=== PATIENT | male | born 1980 | race Caucasian/White ===

== ENCOUNTER 2017-07-22 13:36 | Emergency (ER) | payer BC ==
[2017-07-22] MEDS ORDERED: LORazepam 2 MG/ML MDV IVPUSH ONE (14:31)
[2017-07-22] MEDS ORDERED: Sodium Chloride 0.9% 1,000 ML IV ONE (14:32)
[2017-07-22] MEDS ORDERED: cloNIDine 0.1 MG Tab PO ONE (14:32)
--- NOTE | 2017-07-22 14:33 | EDM.PDOC ---
ED HPI GENERAL MEDICAL PROBLEM - General Chief Complaint: Drug or Alcohol Abuse Stated Complaint: UNKNOWN Time Seen by Provider: 07/22/17 14:32 Source of Information: Reports: Patient - History of Present Illness INITIAL COMMENTS - FREE TEXT/NARRATIVE: HISTORY AND PHYSICAL: History of present illness: [Patient presents who is somewhat anxious in appearance, he relates this being related to alcohol withdrawal although he is been drinking heavily over the last 3 days generally drinking 616 ounce beers daily along with a couple of shots over the last 3 days he is drinking up to a case of beer daily along with several shots of hard liquor. His last drink was at 10 AM he has no tremor he has voiced that he is drinking too much over the last couple of days but does not desire any assistance with stopping alcohol or the like. His main concern is his blood pressure which is elevated he is taking his medication which is not no or limited views last night and is not due again until tonight, I provided the patient 1 mg of Ativan along with a clonidine and a fluid bolus which has improved his blood pressure significantly as he was slightly dehydrated after his drinking binge Otherwise no fever nausea vomiting diarrhea constipation chest pain shortness breath headache dizziness or palpitation no bowel or urine symptoms ] Review of systems: As per history of present illness and below otherwise all systems reviewed and negative. Past medical history: As per history of present illness and as reviewed below otherwise noncontributory. Surgical history: As per history of present illness and as reviewed below otherwise noncontributory. Social history: No reported history of drug or alcohol abuse. Family history: As per history of present illness and as reviewed below otherwise noncontributory. Physical exam: HEENT: Atraumatic, normocephalic, pupils reactive, negative for conjunctival pallor or scleral icterus, mucous membranes moist, throat clear, neck supple, nontender, trachea midline. Lungs: Clear to auscultation, breath sounds equal bilaterally, chest nontender. Heart: S1S2, regular, negative for clicks, rubs, or JVD. Abdomen: Soft, nondistended, nontender. Negative for masses or hepatosplenomegaly. Negative for costovertebral tenderness. Pelvis: Stable nontender. Genitourinary: Deferred. Rectal: Deferred. Extremities: Atraumatic, negative for cords or calf pain. Neurovascular unremarkable. Neuro: Awake, alert, oriented. Cranial nerves II through XII unremarkable. Cerebellum unremarkable. Motor and sensory unremarkable throughout. Exam nonfocal. Diagnostics: [CBC CMP Alcohol level ] Therapeutics: [Ativan 1 mg IV Clonidine 0.1 by mouth Normal saline 1 L bolus ] Impression: Anxiety Anxiety about health alcohol intoxication No active withdrawal [Alcohol use abuse and dependence Previous history of withdrawal no seizure activity no admission to the hospital ] Definitive disposition and diagnosis as appropriate pending reevaluation and review of above. - Related Data Allergies Allergy/AdvReac Type Severity Reaction Status Date / Time No Known Allergies Allergy Verified 07/22/17 13:58 Home Meds: Home Meds Lisinopril 5 mg PO DAILY 02/06/14 [History] Past Medical History Cardiovascular History: Reports: Hypertension - Infectious Disease History Infectious Disease History: Reports: Chicken Pox Social & Family History - Family History Family Medical History: Noncontributory - Tobacco Use Smoking Status *Q: Never Smoker Second Hand Smoke Exposure: No - Caffeine Use Caffeine Use: Reports: Energy Drinks - Alcohol Use Days Per Week of Alcohol Use: 5 Number of Drinks Per Day: 5 Total Drinks Per Week: 25 - Recreational Drug Use Recreational Drug Use: No ED ROS GENERAL - Review of Systems Review Of Systems: ROS reveals no pertinent complaints other than HPI. ED EXAM, GENERAL - Physical Exam Exam: See Below Course - Vital Signs Last Recorded V/S: Last Vital Signs Temp 98.3 F 07/22/17 13:55 Pulse 116 H 07/22/17 13:55 Resp 20 07/22/17 13:55 BP 137/95 H 07/22/17 14:51 Pulse Ox 96 07/22/17 13:55 - Orders/Labs/Meds Labs: Laboratory Tests 07/22/17 07/22/17 07/22/17 Range/Units 14:40 14:40 14:56 WBC 6.56 (4.0-11.0) K/uL RBC 5.49 (4.50-5.90) M/uL Hgb 17.2 H (13.0-17.0) g/dL Hct 47.8 (38.0-50.0) % MCV 87.1 (80.0-98.0) fL MCH 31.3 (27.0-32.0) pg MCHC 36.0 (31.0-37.0) g/dL RDW Std Deviation 40.4 (28.0-62.0) fl RDW Coeff of Danielle 13 (11.0-15.0) % Plt Count 288 (150-400) K/uL MPV 9.50 (7.40-12.00) fL Neut % (Auto) 50.6 (48.0-80.0) % Lymph % (Auto) 39.9 (16.0-40.0) % [place] % (Auto) 8.1 (0.0-15.0) % Eos % (Auto) 0.8 (0.0-7.0) % Baso % (Auto) 0.6 (0.0-1.5) % Neut # (Auto) 3.3 (1.4-5.7) K/uL Lymph # (Auto) 2.6 H (0.6-2.4) K/uL [place] # (Auto) 0.5 (0.0-0.8) K/uL Eos # (Auto) 0.1 (0.0-0.7) K/uL Baso # (Auto) 0.0 (0.0-0.1) K/uL Nucleated RBC % 0.0 /100WBC Nucleated RBCs # 0 K/uL Sodium 142 (136-146) mmol/L Potassium 4.1 (3.5-5.1) mmol/L Chloride 103 (98-110) mmol/L Carbon Dioxide 23 (21-31) mmol/L BUN 8 (6.0-23.0) mg/dL Creatinine 0.8 (0.6-1.5) mg/dL Est Cr Clr Drug Dosing 144.14 mL/min Estimated GFR (MDRD) > 60.0 ml/min Glucose 107 (60-110) mg/dL Calcium 9.6 (8.8-10.8) mg/dL Total Bilirubin 0.9 (0.1-1.5) mg/dL AST 85 H (5-40) IU/L ALT 119 H (8-54) IU/L Alkaline Phosphatase 79 (40-150) Total Protein 8.9 H (6.0-8.0) g/dL Albumin 4.9 (3.5-5.0) g/dL Globulin 4.0 H (2.0-3.5) g/dL Albumin/Globulin Ratio 1.2 L (1.3-2.8) Urine Color YELLOW Urine Appearance CLEAR Urine pH 7.0 (5.0-8.0) Ur Specific [place] <= 1.005 (1.001-1.035) Urine Protein TRACE (NEGATIVE) mg/dL Urine Glucose (UA) NEGATIVE (NEGATIVE) mg/dL Urine Ketones NEGATIVE (NEGATIVE) mg/dL Urine Occult Blood TRACE-INTACT (NEGATIVE) Urine Nitrite NEGATIVE (NEGATIVE) Urine Bilirubin NEGATIVE (NEGATIVE) Urine Urobilinogen 0.2 (<2.0) EU/dL Ur Leukocyte Esterase NEGATIVE (NEGATIVE) Urine RBC 0-1 (0-2/HPF) Urine WBC 0-1 (0-5/HPF) Ur Epithelial Cells RARE (NONE-FEW) Urine Bacteria RARE (NEGATIVE) Ethyl Alcohol 283.5 mg/dL Meds: Medications Discontinued Medications Generic Name Dose Route Start Last Admin Trade Name Tonyq PRN Reason Stop Dose Admin Clonidine HCl 0.1 mg 07/22/17 14:32 07/22/17 14:51 Catapres PO 07/22/17 14:33 0.1 mg ONETIME ONE Administration Sodium Chloride 1,000 mls @ 999 mls/hr 07/22/17 14:32 07/22/17 14:50 Normal Saline IV 07/22/17 15:32 999 mls/hr STAT ONE Administration Lorazepam 1 mg 07/22/17 14:31 07/22/17 14:51 Ativan IVPUSH 07/22/17 14:32 1 mg ONETIME ONE Administration Departure - Departure Time of Disposition: 15:50 Disposition: Home, Self-Care 01 Condition: Good Clinical Impression: Anxiety about health, Alcohol abuse - Discharge Information Referrals: Dago Mckinney MD [Primary Care Provider] - Forms: ED Department Discharge Additional Instructions: Alcohol cessation recommended Provided a list of alcohol treatment centers in [place] Follow-up with primary care for continued management of your blood pressure Continue home medications as directed Patient will require a taxi due to alcohol intoxication The following information is given to patients seen in the emergency department who are being discharged to home. This information is to outline your options for follow-up care. We provide all patients seen in our emergency department with a follow-up referral. The need for follow-up, as well as the timing and circumstances, are variable depending upon the specifics of your emergency department visit. If you don't have a primary care physician on staff, we will provide you with a referral. We always advise you to contact your personal physician following an emergency department visit to inform them of the circumstance of the visit and for follow-up with them and/or the need for any referrals to a consulting specialist. The emergency department will also refer you to a specialist when appropriate. This referral assures that you have the opportunity for follow-up care with a specialist. All of these measure are taken in an effort to provide you with optimal care, which includes your follow-up. Under all circumstances we always encourage you to contact your private physician who remains a resource for coordinating your care. When calling for follow-up care, please make the office aware that this follow-up is from your recent emergency room visit. If for any reason you are refused follow-up, please contact the [facility] emergency department at and asked to speak to the emergency department charge nurse.
[2017-07-22 15:07] LABS: CHLORIDE,CL 103 mmol/L (98-110); SODIUM,NA 142 mmol/L (136-146)
== END 2017-07-22 16:12 | disposition home or self-care (01) ==
LOC: MW.ED 13:36
DX: F41.9 Anxiety disorder, unspecified (principal); I10 Essential (primary) hypertension; F10.10 Alcohol abuse, uncomplicated; Z79.899 Other long term (current) drug therapy
CPT/HCPCS: 36415; 80053; 81001; 85025; 96361; 96374; 99283; A9270; G0480; J2060; J7040